=== PATIENT | male | born 1995 | race Two or more races ===

== ENCOUNTER 2025-02-15 13:10 | Inpatient (IN) | payer MEDICAID, OTHER, SELFPAY ==
[2025-02-15 13:30] VITALS: BP 123/74; PULSE 82; RESP 18; TEMP 36.6; O2SAT 100
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
[2025-02-15] MEDS: Acetaminophen 325 MG TABLET 650 MG PO (15:42)
[2025-02-15] MEDS: FLUoxetine HCl 20 MG CAPSULE PO (17:54)
[2025-02-15 20:00] VITALS: BP 125/57; PULSE 96; RESP 16; TEMP 37.3; O2SAT 100
--- NOTE | 2025-02-16 01:56 | PM.EVENT ---
Event Note Date of Service: 02/16/25 Event Note: pt is a 29 yo male admitted to adult psych. hospitalist consult placed for medical clearance for the psych floor. attempted to see pt but was told by nursing staff the the pt is medicated and sleeping and unable to participate in hospitalist consult at this time. Time Spent With Patient Time: Total time managing care of this patient today ____ minutes.
[2025-02-16 08:14] VITALS: BP 128/76; PULSE 99; RESP 16; TEMP 36.7; O2SAT 100
[2025-02-16] MEDS: FLUoxetine HCl 20 MG CAPSULE PO (08:41)
[2025-02-16] MEDS: Acetaminophen 325 MG TABLET 650 MG PO (08:41)
[2025-02-16 08:54] LABS: Estimated Average Glucose 108 mg/dL; Hemoglobin A1c % 5.4 % (<6.0)
[2025-02-16 08:59] LABS: Anion Gap 11 (12-20)
[2025-02-16 09:05] LABS: Alanine Aminotransferase 32 U/L (0-40); Aspartate Amino Transferase 25 U/L (5-37); Bilirubin Total 0.2 mg/dL (0.0-1.0); Blood Urea Nitrogen 10 mg/dL (9-16); Calcium 9.3 mg/dL (8.4-10.2); Carbon Dioxide 28 mmol/L (22-29); Chloride 106 mmol/L (96-108); Cholesterol 147 mg/dL (<200); Estimated Glomerular Filt Rate > 60; Glucose Random 74 mg/dL (60-115); HDL Cholesterol 33 mg/dL (>40); LDL Cholesterol Calculated 74 mg/dL (<100); Potassium 3.8 mmol/L (3.3-5.1); Sodium 141 mmol/L (135-145); Total Protein 6.6 g/dL (6.5-8.0); Triglycerides 200 mg/dL (<150)
--- NOTE | 2025-02-16 10:14 | HO.PSYADMNOT ---
HPI Date of Service: 02/16/25 Chief Complaint: Unspecified Depression Sources of Information: patient interviewed, chart reviewed and crisis/core team assessment reviewed HPI Subjective Notes: Akins Warning and Conditional Voluntary Narrative: Patient is a 29-year-old male with history of MDD, PTSD and methamphetamine use disorder who self presented to ER due to suicidal ideation secondary to increased depression. Per crisis report, patient presented to ER after his roommates found him superficially cutting his wrists to end his life. Patient reports he attempted to end his life [address] Patient reports multiple family stressors and work stressors which is leading him to feel suicidal. Patient reports daily marijuana use and stopping using crystal meth 1 week ago. denies HI. He reports auditory and visual hallucinations at times. During admission assessment, patient presents alert and oriented x3. Calm, cooperative, tearful. 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 Patient reports feeling anxious and depressed ; patient reports having auditory hallucinations telling him to harm himself. He reports he has been smoking crystal meth for several weeks and recently stopped a week ago. Patient reports having auditory hallucinations telling him to harm himself prior to stopping crystal meth use. denies psychiatric history. denies history of taking psychiatric medications. He does not have outpatient psychiatric providers but would like referrals to outpatient psychiatric providers and would like to be started on medications for his mood and voices. Patient reports sleep and appetite are good; however reports having nightmares. Denies history of SA. History of SIB via superficial cutting. Past Psychiatric History: This is patient's 1st inpatient psychiatric hospitalization. Denies history of SA. History of SIB via cutting. Does not have outpatient psychiatric providers. Denies history of psychiatric medications. Medical Evaluation Reviewed: Hospitalist Ahmet Pending [facility] Family History: denies Social History: homeless, single, no kids, unemployed. highest level of education high school diploma. Substance History: smokes marijuana daily and was smoking crystal meth for several weeks but stopped a week ago. utox positive for amphetamines and THC. Trauma History: yes Diagnostics Labs 02/16/25 07:50 Meds/Allergies Meds Home Medications ?Medication ?Instructions ?Recorded ?Confirmed ?Type No Known Home Meds 02/15/25 02/15/25 History Allergies Allergies Allergy/AdvReac Type Severity Reaction Status Date / Time No Known Allergies Allergy Verified 02/15/25 14:19 Mental Status Exam Mental Status Exam Narrative: Pt is alert and oriented; behavior is cooperative and calm, tearful; dressed in casual attire; mood is described as anxious and depressed ; eye contact appropriate; Speech is normal rate, volume and not pressured; thought process is organized and goal directed; Thought content is on tx; denies SI/HI Assessment & Plan Assessment & Plan (1) Major depressive disorder with psychotic features: Status: Acute Code(s): F32.3 - Major depressive disorder, single episode, severe with psychotic features (2) PTSD (post-traumatic stress disorder): Status: Acute Code(s): F43.10 - Post-traumatic stress disorder, unspecified (3) Methamphetamine abuse: Status: Acute Code(s): F15.10 - Other stimulant abuse, uncomplicated (4) Homelessness: Status: Acute Code(s): Z59.00 - Homelessness unspecified Plan Patient is a 29-year-old male with history of MDD, PTSD and methamphetamine use disorder who self presented to ER due to suicidal ideation secondary to increased depression. Plan: CV 15 minute safety checks obtain collateral Start: Prozac 20mg PO daily Zyprexa 5mg Q4HR PRN Prazosin 1mg PO bedtime referral to outpatient psychiatric providers encourage groups discharge planning Patient educated on: diagnosis and medication risk/benefits Reason for continued inpatient stay Substantial Risk for: harm to self and med/psych decompensation Statement Statement: I have reviewed the history and physical and performed a pertinent examination on my patient. No changes have occurred unless specified. If the History and Physical was not performed prior to admission, the Hospitalist's service will be consulted for completing the admission physical. Time Spent With Patient Time: Total time managing care of this patient today _60___ minutes.
--- NOTE | 2025-02-16 10:15 | P.CONHOSP_ITS ---
History of Present Illness Data of Consult Service Date: 02/16/25 Primary Care Provider: Unknown Physician HPI Reason for consult: Medical consult Patient is a 29-year-old male who was admitted to [facility] after he made some suicidal statements. He denies any past medical history, denies any surgeries. His CBC was within normal limits, Chem 7 unremarkable, his tox screen was positive for amphetamines and marijuana. He denies any medical concerns at this time. Denies shortness of breath, chest pain, dizziness lightheadedness or any other concerning symptoms. Reports some mild pain in his shoulder area due to a fall a month or so ago. Patient has full range of motion, neuropsych intact. Denies any shortness of breath chest pain or any other concerning symptoms. He does not take any medications. Review of Systems 2 Review of Systems: Denies any shortness of breath, chest pain, dizziness, lightheadedness, abdominal pain or discomfort, nausea vomiting or diarrhea. Mild shoulder pain PMFSH Social History Household Members: None Household Members Other:: Now becoming homeless. Had been renting with roommates previously. Housing: Homeless Do you presently have visiting nurse or other home services: No Patient Tobacco Use Status: Never used Tobacco Currently Displaying Signs/Symptoms of Drug Intoxication Withdrawal: No Have you been hit, kicked, punched, or otherwise hurt by someone within the past year? If so, by whom?: No Do you feel safe in your current relationship?: No Current Relationship Is there a partner from a previous relationship who is making you feel unsafe now?: No Are you made to feel afraid or neglected: No Advance Directives: No Advance Directives Information Provided: Yes Do you have thoughts of harming others: None Do you have a plan to hurt others: No Plan Recently lost weight without trying: No Eating poorly because of decreased appetite: No Nutrition Risks: No Nutritional Risk Poor oral hygiene: No Meds Allergies Allergy/AdvReac Type Severity Reaction Status Date / Time No Known Allergies Allergy Verified 02/15/25 14:19 Active Medications: Current Medications Acetaminophen (Acetaminophen 325 Mg Tablet) 650 mg PO Q6H PRN PRN Reason: Headache/Pain, Scale 1-10 Last Admin: 02/16/25 08:41 Dose: 650 mg Al Hydroxide/Mg Hydroxide (Magnesium Hydrox/Alum Hydrox 30 Ml Oral.Susp) 30 ml PO Q6H PRN PRN Reason: Heartburn/Nausea Fluoxetine HCl (Fluoxetine Hcl 20 Mg Capsule) 20 mg PO DAILY [facility] Last Admin: 02/16/25 08:41 Dose: 20 mg Hydroxyzine HCl (Hydroxyzine Hcl 25 Mg Tablet) 25 mg PO Q6H PRN PRN Reason: mild anxiety Ibuprofen (Ibuprofen 600 Mg Tablet) 600 mg PO Q8H PRN PRN Reason: Pain, Moderate(Pain Scale 4-6) Magnesium Hydroxide (Milk Of Magnesia 30 Ml Oral.Susp) 30 ml PO DAILY PRN PRN Reason: Constipation Nicotine (Nicotine 21 Mg Patch.Td24) 21 mg TRANSDERMA DAILY [facility] Last Admin: 02/16/25 08:33 Dose: Not Given Nicotine Polacrilex (Nicotine Polacrilex 2 Mg Gum) 4 mg BUCCAL Q2H PRN PRN Reason: Nicotine Cravings Olanzapine (Olanzapine 5 Mg Tablet) 5 mg PO Q4H PRN PRN Reason: agitation Trazodone HCl (Trazodone Hcl 50 Mg Tablet) 50 mg PO BEDTIME MRX1 PRN PRN Reason: Insomnia Home Medications ?Medication ?Instructions ?Recorded ?Confirmed ?Last Taken ?Type No Known Home Meds 02/15/25 02/15/25 Unknown History Physical Exam 2 Vital Signs and Narrative: Vital Signs: Last Vital Signs Temp 98.0 F 02/16/25 08:14 Pulse 99 02/16/25 08:14 Resp 16 02/16/25 08:14 BP 128/76 02/16/25 08:14 Pulse Ox 100 02/16/25 08:14 O2 Del Method Room Air 02/16/25 08:14 Alert and oriented X3, able to give good 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 Neuro: CN II-X11 intact, no deficits, visual acuity intact EYES: PERRLA, EOM intact ENT: hearing intact, uvula midline, lips moist Cardiac: S1 S2 RRR, no edema in Lower ext Pulmonary: lungs clear to auscultation, No increased WOB. Abdominal: BS active in all 4 quadrants, no tenderness MSK: Strength 5/5 upper and lower extremities : no CVA tenderness no bladder distension Extremities: no edema in lower extremities Psych: mood stable, quiet and cooperative Skin: Warm and dry, Intact Results Labs 02/16/25 07:50 Labs: Laboratory Results - last 24 hr 02/16/25 07:50 Anion Gap 11 L Estim Creat Clear Calc TNP Estimated GFR > 60 Random Glucose 74 Estimat Average Glucose 108 Hemoglobin A1c % 5.4 Calcium 9.3 Total Bilirubin 0.2 AST 25 ALT 32 Total Protein 6.6 Albumin 4.0 Triglycerides 200 H Cholesterol 147 LDL Cholesterol, Calc 74 HDL Cholesterol 33 L Assessment and Plan (1) Major depressive disorder with psychotic features: Status: Acute Plan Major Depression with SI statements and psychotic features/PTSD/Methamphetamine abuse Treatment per psychiatric team Thank you for allowing me to participate in the care of this patient. Signing off at this time. Please reconsult of any acute complaints or issues arise
[2025-02-16 13:11] LABS: Alkaline Phosphatase 90 U/L (39-117)
[2025-02-16] MEDS: OLANZapine 5 MG TABLET PO (15:30)
[2025-02-16 20:00] VITALS: BP 115/60; PULSE 100; RESP 16; TEMP 37; O2SAT 100
[2025-02-16] MEDS: Prazosin HCL 1 MG CAPSULE PO (20:26)
[2025-02-17 07:00] VITALS: BMI 26.2
[2025-02-17 08:00] VITALS: BP 104/51; PULSE 72; RESP 18; TEMP 36.4; O2SAT 100
[2025-02-17] MEDS: FLUoxetine HCl 20 MG CAPSULE PO (08:52)
--- NOTE | 2025-02-17 15:00 | HO.PSYCHPN ---
Subjective Subjective Date of Service: 02/17/25 Reason For Visit: Unspecified Depression Subjective Notes: Conditional Voluntary Interim History: Active on unit. keeping to self. off premise service representative present for assessment. Pt continues to report feeling sad and anxious ; pt stated, I spoke to my dad who said I can stay with him but then when I spoke to him again, he was making a lot of reasons why I couldn't. I'm thinking of going back to [place] . Per nursing, slept 8 hours last night. denies SI/HI/VH/AH. Continue current tx plan. Medication Compliance: Yes Side effects from medications: No Attending Groups: No Mental Status Exam Mental Status Exam Narrative: Pt is alert and oriented; behavior is cooperative and calm, tearful; dressed in casual attire; mood is described as anxious and depressed ; eye contact appropriate; Speech is normal rate, volume and not pressured; thought process is organized; Thought content is on tx and discharge; denies SI/HI/VH/AH. Diagnostics Vital Signs (24Hr): Vital Signs - 24 hr 02/16/25 20:00 02/17/25 08:00 Temperature 98.6 F 97.6 F Pulse Rate 100 72 Respiratory Rate 16 18 Blood Pressure 115/60 104/51 L Pulse Oximetry 100 100 Oxygen Delivery Method Room Air Room Air Labs 02/16/25 07:50 Labs: Laboratory Results - last 48 hr 02/16/25 07:50 Sodium 141 Potassium 3.8 Chloride 106 Carbon Dioxide 28 Anion Gap 11 L BUN 10 Creatinine 0.80 Estim Creat Clear Calc TNP Estimated GFR > 60 Random Glucose 74 Estimat Average Glucose 108 Hemoglobin A1c % 5.4 Calcium 9.3 Total Bilirubin 0.2 AST 25 ALT 32 Alkaline Phosphatase 90 Total Protein 6.6 Albumin 4.0 Triglycerides 200 H Cholesterol 147 LDL Cholesterol, Calc 74 HDL Cholesterol 33 L Medications Medications Current Medications Acetaminophen (Acetaminophen 325 Mg Tablet) 650 mg PO Q6H PRN PRN Reason: Headache/Pain, Scale 1-10 Last Admin: 02/16/25 08:41 Dose: 650 mg Al Hydroxide/Mg Hydroxide (Magnesium Hydrox/Alum Hydrox 30 Ml Oral.Susp) 30 ml PO Q6H PRN PRN Reason: Heartburn/Nausea Fluoxetine HCl (Fluoxetine Hcl 20 Mg Capsule) 20 mg PO DAILY [facility] Last Admin: 02/17/25 08:52 Dose: 20 mg Hydroxyzine HCl (Hydroxyzine Hcl 25 Mg Tablet) 25 mg PO Q6H PRN PRN Reason: mild anxiety Ibuprofen (Ibuprofen 600 Mg Tablet) 600 mg PO Q8H PRN PRN Reason: Pain, Moderate(Pain Scale 4-6) Magnesium Hydroxide (Milk Of Magnesia 30 Ml Oral.Susp) 30 ml PO DAILY PRN PRN Reason: Constipation Nicotine Polacrilex (Nicotine Polacrilex 2 Mg Gum) 4 mg BUCCAL Q2H PRN PRN Reason: Nicotine Cravings Olanzapine (Olanzapine 5 Mg Tablet) 5 mg PO Q4H PRN PRN Reason: agitation Last Admin: 02/16/25 15:30 Dose: 5 mg Prazosin HCl (Prazosin Hcl 1 Mg Capsule) 1 mg PO BEDTIME [facility]; Protocol Last Admin: 02/16/25 20:26 Dose: 1 mg Trazodone HCl (Trazodone Hcl 50 Mg Tablet) 50 mg PO BEDTIME MRX1 PRN PRN Reason: Insomnia Allergies Allergies Allergy/AdvReac Type Severity Reaction Status Date / Time No Known Allergies Allergy Verified 02/15/25 14:19 Assessment & Plan Assessment & Plan (1) Major depressive disorder with psychotic features: Status: Acute Code(s): F32.3 - Major depressive disorder, single episode, severe with psychotic features (2) PTSD (post-traumatic stress disorder): Status: Acute Code(s): F43.10 - Post-traumatic stress disorder, unspecified (3) Methamphetamine abuse: Status: Acute Code(s): F15.10 - Other stimulant abuse, uncomplicated (4) Homelessness: Status: Acute Code(s): Z59.00 - Homelessness unspecified Plan Patient is a 29-year-old male with history of MDD, PTSD and methamphetamine use disorder who self presented to ER due to suicidal ideation secondary to increased depression. Plan: CV 15 minute safety checks obtain collateral Start: Prozac 20mg PO daily Zyprexa 5mg Q4HR PRN Prazosin 1mg PO bedtime referral to outpatient psychiatric providers encourage groups discharge planning 02/17: Active on unit. keeping to self. off premise service representative present for assessment. Pt continues to report feeling sad and anxious ; pt stated, I spoke to my dad who said I can stay with him but then when I spoke to him again, he was making a lot of reasons why I couldn't. I'm thinking of going back to [place] . Per nursing, slept 8 hours last night. denies SI/HI/VH/AH. Continue current tx plan. Patient educated on: diagnosis, medication risk/benefits and therapeutic strategies Reason for continued inpatient stay Substantial Risk for: med/psych decompensation Time Spent With Patient Time: Total time managing care of this patient today _20___ minutes.
[2025-02-17 19:52] VITALS: BP 141/73; PULSE 112; RESP 16; TEMP 36.4; O2SAT 99
[2025-02-17] MEDS: Prazosin HCL 1 MG CAPSULE PO (20:55)
[2025-02-17] MEDS: traZODone HCL 50 MG TABLET PO (20:55)
[2025-02-17] MEDS: Ibuprofen 600 MG TABLET PO (20:59)
[2025-02-18 08:00] VITALS: BP 98/62; PULSE 110; RESP 18; TEMP 37.8; O2SAT 98
[2025-02-18] MEDS: FLUoxetine HCl 20 MG CAPSULE PO (08:54)
--- NOTE | 2025-02-18 10:28 | HO.PSYCHPN ---
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 Pt reports feeling better today; pt stated, I spoke to my dad again and he said I can stay with him. He's going to come here tomorrow . Pt reports he is no longer having nightmares and finds the medication helpful. Pt reports he plans on staying in the [place] and finding work. Pt denies SI/HI/VH/AH. Plan to discharge home with his father tomorrow. Medication Compliance: Yes Side effects from medications: No Attending Groups: No Mental Status Exam Mental Status Exam Narrative: Pt is alert and oriented; behavior is cooperative and calm; dressed in casual attire; mood is described as good ; eye contact appropriate; Speech is normal rate, volume and not pressured; thought process is organized; Thought content is on discharge; denies SI/HI/VH/AH. Diagnostics Vital Signs (24Hr): Vital Signs - 24 hr 02/17/25 19:52 02/18/25 08:00 Temperature 97.6 F 100.0 F Pulse Rate 112 H 110 H Respiratory Rate 16 18 Blood Pressure 141/73 H 98/62 Pulse Oximetry 99 98 Oxygen Delivery Method Room Air Room Air BMI result Body Mass Index 26.2 Labs 02/16/25 07:50 Labs: Laboratory Results - last 48 hr 02/16/25 07:50 Alkaline Phosphatase 90 Medications Medications Current Medications Acetaminophen (Acetaminophen 325 Mg Tablet) 650 mg PO Q6H PRN PRN Reason: Headache/Pain, Scale 1-10 Last Admin: 02/16/25 08:41 Dose: 650 mg Al Hydroxide/Mg Hydroxide (Magnesium Hydrox/Alum Hydrox 30 Ml Oral.Susp) 30 ml PO Q6H PRN PRN Reason: Heartburn/Nausea Fluoxetine HCl (Fluoxetine Hcl 20 Mg Capsule) 20 mg PO DAILY [facility] Last Admin: 02/18/25 08:54 Dose: 20 mg Hydroxyzine HCl (Hydroxyzine Hcl 25 Mg Tablet) 25 mg PO Q6H PRN PRN Reason: mild anxiety Ibuprofen (Ibuprofen 600 Mg Tablet) 600 mg PO Q8H PRN PRN Reason: Pain, Moderate(Pain Scale 4-6) Last Admin: 02/17/25 20:59 Dose: 600 mg Magnesium Hydroxide (Milk Of Magnesia 30 Ml Oral.Susp) 30 ml PO DAILY PRN PRN Reason: Constipation Nicotine Polacrilex (Nicotine Polacrilex 2 Mg Gum) 4 mg BUCCAL Q2H PRN PRN Reason: Nicotine Cravings Olanzapine (Olanzapine 5 Mg Tablet) 5 mg PO Q4H PRN PRN Reason: agitation Last Admin: 02/16/25 15:30 Dose: 5 mg Prazosin HCl (Prazosin Hcl 1 Mg Capsule) 1 mg PO BEDTIME [facility]; Protocol Last Admin: 02/17/25 20:55 Dose: 1 mg Trazodone HCl (Trazodone Hcl 50 Mg Tablet) 50 mg PO BEDTIME MRX1 PRN PRN Reason: Insomnia Last Admin: 02/17/25 20:55 Dose: 50 mg Allergies Allergies Allergy/AdvReac Type Severity Reaction Status Date / Time No Known Allergies Allergy Verified 02/15/25 14:19 Assessment & Plan Assessment & Plan (1) Major depressive disorder with psychotic features: Status: Acute Code(s): F32.3 - Major depressive disorder, single episode, severe with psychotic features (2) PTSD (post-traumatic stress disorder): Status: Acute Code(s): F43.10 - Post-traumatic stress disorder, unspecified (3) Methamphetamine abuse: Status: Acute Code(s): F15.10 - Other stimulant abuse, uncomplicated (4) Homelessness: Status: Acute Code(s): Z59.00 - Homelessness unspecified Plan Patient is a 29-year-old male with history of MDD, PTSD and methamphetamine use disorder who self presented to ER due to suicidal ideation secondary to increased depression. Plan: CV 15 minute safety checks obtain collateral Start: Prozac 20mg PO daily Zyprexa 5mg Q4HR PRN Prazosin 1mg PO bedtime referral to outpatient psychiatric providers encourage groups discharge planning 02/17: Active on unit. keeping to self. 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 Pt continues to report feeling sad and anxious ; pt stated, I spoke to my dad who said I can stay with him but then when I spoke to him again, he was making a lot of reasons why I couldn't. I'm thinking of going back to [place] . Per nursing, slept 8 hours last night. denies SI/HI/VH/AH. Continue current tx plan. 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 Pt reports feeling better today; pt stated, I spoke to my dad again and he said I can stay with him. He's going to come here tomorrow . Pt reports he is no longer having nightmares and finds the medication helpful. Pt reports he plans on staying in the [place] and finding work. Pt denies SI/HI/VH/AH. Plan to discharge home with his father tomorrow. Patient educated on: diagnosis and medication risk/benefits Reason for continued inpatient stay Substantial Risk for: stable for discharge Time Spent With Patient Time: Total time managing care of this patient today _20___ minutes.
--- NOTE | 2025-02-18 16:32 | PM.PSYDC ---
DS: Providers Provider Date of Service: 02/18/25 Date of admission: 02/15/25 13:10 Date of discharge: 02/19/25 Primary care physician: Unknown Physician Admitting clinician: Mariluz Amaya Attending physician on admission: Attila Villatoro Consults: 02/15/25 15:52 Consult to Hospitalist Routine Comment: Consulting Provider: [facility] Hospitalists Reason For Exam: new admit, H&P Attending physician on discharge: Attila Villatoro Discharging clinician: Mariluz Amaya DS: Diagnosis Discharge Diagnosis (1) Major depressive disorder with psychotic features: Status: Acute (2) PTSD (post-traumatic stress disorder): Status: Acute (3) Methamphetamine abuse: Status: Acute (4) Homelessness: Status: Acute DS: Medications Discharge Medications Home Medications: Previous Rx's ?Medication ?Instructions ?Recorded fluoxetine 20 mg capsule 20 mg PO DAILY 30 days #30 caps 02/18/25 prazosin 1 mg capsule 1 mg PO BEDTIME 30 days #30 caps 02/18/25 Mental Status Exam Mental Status Exam Narrative: Pt is alert and oriented; behavior is cooperative and calm; dressed in casual attire; mood is described as good ; eye contact appropriate; Speech is normal rate, volume and not pressured; thought process is organized; Thought content is on discharge; denies SI/HI/VH/AH. DS: Summary Hospital Course Hospital Course: Patient is a 29-year-old male with history of MDD, PTSD and methamphetamine use disorder who self presented to ER due to suicidal ideation secondary to increased depression. Per crisis report, patient presented to ER after his roommates found him superficially cutting his wrists to end his life. Patient reports he attempted to end his life [address] Patient reports multiple family stressors and work stressors which is leading him to feel suicidal. Patient reports daily marijuana use and stopping using crystal meth 1 week ago. denies HI. He reports auditory and visual hallucinations at times. During admission assessment, patient presents alert and oriented x3. Calm, cooperative, tearful. anesthesiologist attending present. Patient reports feeling anxious and depressed ; patient reports having auditory hallucinations telling him to harm himself. He reports he has been smoking crystal meth for several weeks and recently stopped a week ago. Patient reports having auditory hallucinations telling him to harm himself prior to stopping crystal meth use. denies psychiatric history. denies history of taking psychiatric medications. He does not have outpatient psychiatric providers but would like referrals to outpatient psychiatric providers and would like to be started on medications for his mood and voices. Patient reports sleep and appetite are good; however reports having nightmares. Denies history of SA. History of SIB via superficial cutting. Plan: CV 15 minute safety checks obtain collateral Start: Prozac 20mg PO daily Zyprexa 5mg Q4HR PRN Prazosin 1mg PO bedtime referral to outpatient psychiatric providers encourage groups discharge planning Active on unit. keeping to self. anesthesiologist attending present for assessment. Pt continues to report feeling sad and anxious ; pt stated, I spoke to my dad who said I can stay with him but then when I spoke to him again, he was making a lot of reasons why I couldn't. I'm thinking of going back to [place] . Per nursing, slept 8 hours last night. denies SI/HI/VH/AH. Continue current tx plan. anesthesiologist attending present for assessment. Pt reports feeling better today; pt stated, I spoke to my dad again and he said I can stay with him. He's going to come here tomorrow . Pt reports he is no longer having nightmares and finds the medication helpful. Pt reports he plans on staying in the [place] and finding work. Pt denies SI/HI/VH/AH. Plan to discharge home with his father tomorrow. Status at Discharge Cognitive/behavioral status at discharge: Patient has insight and demonstrates good judgment in terms of wanting to pursue treatment. Patient has a safety plan that includes presenting to the closest ER or calling 911 if feeling unsafe. Functional status at discharge: independent ambulation Overall status at discharge: patient is back to baseline Time Spent with Patient Time attestation: Total time managing care of this patient today _20___ minutes. Time spent: Less than 30 minutes Discharge Plan Discharge Anticipated Discharge Date/Time: 02/19/25 11:00 Patient Disposition: Home, Self-Care Discharge Diagnosis: MDD, PTSD, methamphetamine abuse Referrals: [facility] [Provider Group] - 1 Week Discharge Medications: New prazosin 1 mg Capsule 1 mg PO BEDTIME 30 Days Qty: 30 0RF Protocol: Hold for SBP< HOLD for SBP < : 90 fluoxetine 20 mg Capsule 20 mg PO DAILY 30 Days Qty: 30 0RF Discharge Orders: Discharge Order (Routine); Ordered 02/19/25 Ordered By: Mariluz Amaya Diet: Regular diet Activity on Discharge: As tolerated Stand Alone Forms: Patient Portal Discharge page, Community Support Print Language: Divehi Care Plan Goals: Maintain mood and safe behaviors Take medications as prescribed Continue to pursue sobriety Practice coping skills Continue with outpatient providers and reach out to them as needed Health Concerns: Mood stability and behaviors Sobriety Plan of Treatment: Follow up with your PCP, psychiatric provider and other outpatient providers regarding above concerns Take medications as prescribed Assessment: Patient has insight and demonstrates good judgment in terms of wanting to pursue treatment. Patient has a safety plan that includes presenting to the closest ER or calling 911 if feeling unsafe. Discharge Date/Time: 02/19/25 11:40
[2025-02-18 19:45] VITALS: BP 119/80; PULSE 120; RESP 18; TEMP 36.9; O2SAT 98
[2025-02-18 20:55] VITALS: BP 119/80
[2025-02-18] MEDS: Prazosin HCL 1 MG CAPSULE PO (20:55)
[2025-02-18] MEDS: traZODone HCL 50 MG TABLET PO ×2 (20:56→23:05)
[2025-02-18] MEDS: Acetaminophen 325 MG TABLET 650 MG PO (23:04)
[2025-02-19 08:00] VITALS: BP 110/76; PULSE 116; RESP 16; TEMP 36.9; O2SAT 99
[2025-02-19] MEDS: FLUoxetine HCl 20 MG CAPSULE PO (09:08)
[2025-02-19] MEDS: Naloxone HCl Nasal TAKE HOME 4 MG SPRAY 8 MG NOSTRILALT (09:10)
== END 2025-02-19 11:40 | disposition home or self-care (01) | DRG 751 ==
PROVIDERS: Admitting Provider Psychiatry & Neurology Psychiatry; Responsible Provider Registered Nurse; Visit Provider Psychiatry & Neurology Psychiatry
DX: F32.3 Major depressive disorder, single episode, severe with psychotic features (principal); F15.10 Other stimulant abuse, uncomplicated; F43.10 Post-traumatic stress disorder, unspecified; Z59.02 Unsheltered homelessness; Z79.899 Other long term (current) drug therapy
CPT/HCPCS: 36415; 80053; 80061; 83036

== ENCOUNTER → 2025-02-15 13:10 | Outpatient (BNV) | payer SELFPAY | PROVIDERS: Admitting Provider Psychiatry & Neurology Psychiatry; Responsible Provider Registered Nurse; Visit Provider Physician Assistant | DX: F32.3 Major depressive disorder, single episode, severe with psychotic features (principal) | CPT/HCPCS: 99221; 99499 ==

== ENCOUNTER → 2025-02-15 13:10 | Outpatient (BNV) | payer SELFPAY | PROVIDERS: Admitting Provider Psychiatry & Neurology Psychiatry; Responsible Provider Registered Nurse; Visit Provider Registered Nurse | DX: F32.3 Major depressive disorder, single episode, severe with psychotic features (principal); F15.10 Other stimulant abuse, uncomplicated; F43.11 Post-traumatic stress disorder, acute; Z59.00 Homelessness unspecified | CPT/HCPCS: 90792; 99231 ==